=== PATIENT | female | born 1955 | race Caucasian/White ===

== ENCOUNTER 2017-02-18 16:56 | Emergency (ER) | payer BC ==
[2017-02-18 17:03] VITALS: BP 161/90; PULSE 66; RESP 20; TEMP 97.9; O2SAT 96
--- NOTE | 2017-02-18 18:21 | PD ---
HPI . Right eye pain Chief Complaint: Eye Problems/Injury Time Seen by Provider: 18:15 Travel History International Travel<30 days: No Contact w/Intl Traveler<30days: No Traveled to known affect area: No History of Present Illness HPI Patient presents with the acute onset of a foreign body sensation in the right eye. She states that it started just a little bit prior to presentation. She states that she thought that she had an eyelash in her eye. Her chide to check her eye and could not find an obvious foreign body. They tried flushing it with no relief of her symptoms. She subsequently presented here. She reports that her pain is severe. No exacerbating factor. Unrelieved by flush. PFSH Social History Tobacco Use: No Allergies-Medications (Allergen,Severity, Reaction): Coded Allergies: No Known Allergies (Unverified , 02/18/17) Review of Systems Eyes: Positive: Blurred Vision, Redness, Foreign Body Sensation, Pain, Tearing Physical Exam Narrative GENERAL: Awake and alert and in no acute distress. SKIN: Warm and dry. HEAD: Atraumatic. Normocephalic. EYES: No foreign body was noted on lid eversion. She does has some mild conjunctival injection. Fluorescein staining showed no uptake. Her corneas are deep and clear. Pupils are equal. NECK: Trachea midline. CARDIOVASCULAR: Regular rate and rhythm. RESPIRATORY: No accessory muscle use. MUSCULOSKELETAL: No obvious deformities. No edema. NEUROLOGICAL: Awake and alert. No obvious cranial nerve deficits. Motor grossly within normal limits. Normal speech. PSYCHIATRIC: Appropriate mood and affect; insight and judgment normal. Data Data Last Documented VS Vital Signs Date Time Temp Pulse Resp B/P Pulse Ox O2 Delivery O2 Flow Rate FiO2 02/18/17 17:03 97.9 66 20 161/90 96 Orders Tetracaine 0.5% Opth Soln (Tetracaine 0. (02/18/17 18:30) Fluorescein Strip (Fvedq-N-Smbmzh A.T.) (02/18/17 18:30) MDM Medical Decision Making Medical Screen Exam Complete: Yes Emergency Medical Condition: Yes Differential Diagnosis Differential diagnosis of eye pain includes but is not limited to conjunctivitis , chemical irritation, corneal abrasion, acute angle-closure glaucoma. Narrative Course Patient presents with a foreign body sensation in her right eye. She acts like someone has a corneal abrasion. Ever, I cannot see a corneal abrasion. I suspect that she probably has one that I just can't see. I will treat her with erythromycin ophthalmic ointment, Acular and [place]. Diagnosis Primary Impression: Acute right eye pain Referrals: Lacey Zacarias MD Or an lottery sales clerk of her choice if not better in 48 hours. Patient Instructions: Corneal Abrasion (DC), General Instructions Med/Other Pt SpecificInfo: Prescription(s) given Scripts Hydrocodone-Acetaminophen ([place])5-325 mg Tab1 Tab PO Q4H PRN (PAIN) #6 TAB Ref 0 Prov:Pamela Zee MD 02/18/17 Ketorolac Opth Drops (Acular Opth Drops)0.5% Drops1 Drop RIGHT EYE QID #5 ML Ref 0 Prov:Pamela Zee MD 02/18/17 Erythromycin Opth Oint 5 Mg/Gm Oint1 Applic RIGHT EYE QID 3 Days Ref 0 Prov:Pamela Zee MD 02/18/17 Disposition: 01 DISCHARGE HOME Condition: Stable Pamela Zee MD Feb 18, 2017 18:21
[2017-02-18] MEDS ORDERED: FLUORESCEIN SOD 1 MG STRIP RIGHT EYE ONE (18:30)
[2017-02-18] MEDS ORDERED: TETRACAINE 0.5% OPTH SOLN 4 ML BTL RIGHT EYE ONE (18:30)
[2017-02-18] MEDS ORDERED: NORC5TAB PO (18:52)
[2017-02-18] MEDS ORDERED: KETO1SOL3 RIGHT EYE (18:52)
[2017-02-18] MEDS ORDERED: ERYTOIN10 RIGHT EYE (18:52)
[2017-02-18] MEDS ORDERED: LEXA10TA PO (18:59)
[2017-02-18] MEDS ORDERED: REST15CA PO (18:59)
[2017-02-18] MEDS ORDERED: ALPR.25 PO (18:59)
== END 2017-02-18 19:10 | disposition home or self-care (01) ==
LOC: PHED 16:56 → PHEFT 19:10
DX: H57.11 Ocular pain, right eye (principal)
CPT/HCPCS: 99284